=== PATIENT | male | born 1940 | race Caucasian/White ===

== ENCOUNTER → 2025-03-23 | Outpatient (CLI) | payer MEDICARE ==
[~2025-03-23] MED LIST: AMIO200 PO; BP MED; CHOLESTEROL MED; ELIQUIS2.5 MG PO; HYDR1TAB94 PO; LISI20 PO; Lopressor 25 mg25 MG PO; METO25ER PO; Prozac20 MG; SERT50; SIMV10 PO; TAMS.4ER PO; XARELTO; ZOLP10 PO
[2025-03-30 16:09] LABS: ALBUMIN %,URINE 74.3 %; ALPHA-1 %,URINE 4.5 %; ALPHA-2 %,URINE 4.9 %; BETA GLOBULIN %,URINE 7.8 %; GAMMA GLOBULIN %,URINE 8.5 %; HOURS COLLECTED 24 hr; PARAPROTEIN %,URINE 0.0 %; PARAPROTEIN EXCRETION/24 HOUR 0.0
== END ==
LOC: LAB SHORT 17:15 → LAB 17:15 → LAB FUT 03-21 15:20
PROVIDERS: Internal Medicine
DX: R79.89 Other specified abnormal findings of blood chemistry (principal)
CPT/HCPCS: 84156; 84166; 86335